=== PATIENT | male | born 1970 | race Caucasian/White ===

== ENCOUNTER 2021-08-21 18:00 | Emergency (ER) | payer MEDICAID ==
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
--- NOTE | 2021-08-21 19:23 | CR ---
[id number] RAD/RAD Shoulder Left 2V Min EXAM: RAD Shoulder Left 2V Min CLINICAL DATA: TRAUMA COMPARISON: No previous similar exam is available. FINDINGS: A healing left midclavicular fracture is seen There is no new fracture or dislocation. IMPRESSION: HEALING LEFT MIDCLAVICULAR FRACTURE Robin Schaffer MD 08/21/211920 Thank you for allowing us to participate in the care of your patient.
== END 2021-08-21 18:58 | disposition home or self-care (01) ==
LOC: KA.ED 18:00
DX: M25.512 Pain in left shoulder (principal)
CPT/HCPCS: 73030-LT; 99283; 99283-25